=== PATIENT | female | born 1990 ===

== ENCOUNTER 2017-09-03 00:12 | Emergency (ER) | payer SELFPAY ==
[2017-09-03 00:47] VITALS: BP 136/94; PULSE 65; RESP 18; TEMP 98.5; O2SAT 100
[2017-09-03] MEDS ORDERED: Sodium Chloride 0.9% 1,000 ML IV STA (01:16)
--- NOTE | 2017-09-03 01:18 | ED PDOC ---
HPI: Abdomen Time Seen by Provider: 09/03/17 00:51 Chief Complaint (Nursing): Abdominal Pain Chief Complaint (Provider): abdominal pain History Per: Patient History/Exam Limitations: no limitations Onset/Duration Of Symptoms: Hrs Current Symptoms Are (Timing): Still Present Location Of Pain/Discomfort: Suprapubic Quality Of Discomfort: Cramping Associated Symptoms: Nausea, Vomiting Additional Complaint(s): 27 y/o female presents for evaluation of lower abdominal cramping x 5 hours. Patient reports similar pain every time she gets her menstrual period, which started yesterday morning, but did not get relief with an anti-spasmodic medication and pantoprazole medication she took at home. Patient reports one episode of vomiting. Denies fever, cough, congestion, chest pain, shortness of breath, palpitations, urinary symptoms. Past Medical History Reviewed: Historical Data, Nursing Documentation, Vital Signs Vital Signs: Last Vital Signs Temp 98.5 F 09/03/17 00:44 Pulse 65 09/03/17 00:44 Resp 18 09/03/17 00:44 BP 136/94 H 09/03/17 00:44 Pulse Ox 100 09/03/17 01:18 - Medical History PMH: No Chronic Diseases - Surgical History Surgical History: No Surg Hx - Family History Family History: States: No Known Family Hx - Allergies Allergies/Adverse Reactions: Allergies Allergy/AdvReac Type Severity Reaction Status Date / Time No Known Allergies Allergy Verified 09/03/17 00:44 Review of Systems ROS Statement: Except As Marked, All Systems Reviewed And Found Negative Gastrointestinal: Positive for: Nausea, Vomiting, Abdominal Pain Genitourinary Female: Positive for: Vaginal Bleeding Physical Exam - Reviewed Nursing Documentation Reviewed: Yes Vital Signs Reviewed: Yes - Physical Exam Appears: Positive for: Well, Non-toxic, No Acute Distress Head Exam: Positive for: ATRAUMATIC, NORMAL INSPECTION, NORMOCEPHALIC Skin: Positive for: Normal Color Eye Exam: Positive for: Normal appearance ENT: Positive for: Normal ENT Inspection Cardiovascular/Chest: Positive for: Regular Rate, Rhythm Respiratory: Positive for: Normal Breath Sounds Gastrointestinal/Abdominal: Positive for: Bowel Sounds, Soft, Tenderness ( suprapubic). Negative for: Distended, Guarding, Rebound Back: Positive for: Normal Inspection Extremity: Positive for: Normal ROM Neurologic/Psych: Positive for: Alert, Oriented - ECG O2 Sat by Pulse Oximetry: 100 - Progress ED Course And Treament: labs, IV fluids, IV toradol, urine ordered Patient left ED before treatment completed Disposition - Clinical Impression Clinical Impression: Menstrual cramps - Patient ED Disposition Is Patient to be Admitted: No - Disposition Disposition: Left W/O Treatment Disposition Time: 01:37 Condition: STABLE
== END 2017-09-03 01:30 | disposition left against medical advice (07) ==
LOC: H.ER 00:12
DX: N94.6 Dysmenorrhea, unspecified (principal)